=== PATIENT | female | born 2000 | race Caucasian/White ===

== ENCOUNTER 2023-12-15 13:17 | Emergency (ER) | payer SELFPAY ==
[2023-12-15 13:18] VITALS: BP 135/72
--- NOTE | 2023-12-15 13:36 | ED.GENMED ---
History of Present Illness
General
Chief Complaint: Musculo-Skeletal Complaint
Source: patient
Time Seen by Provider: 12/15/23 13:24
Travel History
Have you had any contact with someone who has COVID-19?: No
Do you have any symptoms of coronavirus? Fever > 100 degrees, chills, cough, shortness of breath, sore throat, loss of taste or smell, muscle aches, or headache?: No
History of Present Illness
History of Present Illness:
23-year-old female with past medical history of asthma presenting to the emergency ferment for evaluation of right foot pain located around the first MTP joint along the medial and plantar surface with inability to ambulate secondary to pain.
Patient states that when she has been ambulating she is standing on the lateral aspect of her foot. She denies any known injury or history of similar in the past. Patient does note that around a month ago she had 2 plantar warts on the foot that
she removed with [id number] medication without any complications. Denies any breaks in the skin, fevers or infectious symptoms.
Past History
Past History
ED Past Medical History: Asthma
ED Past Surgical History: None
Social History
Tobacco: Non-smoker
Alcohol: Occasional
Drug: None
Personal: Single
Living: with family
Employment: Employed
Review of Systems
Review of Systems
All Other Systems: ROS reviewed and negative except as documented in HPI and ROS
Phy Exam
Physical Exam
Physical Exam:
GENERAL: Alert , in no apparent distress
EYE: conjunctiva clear
Head: Normocephalic atraumatic
NECK: Supple,
ENT: mmm.
LUNGS: no acute respiratory distress
NEUROLOGICAL: Alert and oriented
SKIN: Warm and dry, skin intact.
MUSCULOSKELETAL: Right foot: Mild soft tissue swelling along the plantar and medial aspect at the first MTP. No significant erythema when compared to the left foot. No streaking. There is no tenderness on the rest of the foot when palpated.
Easily palpable pedal and tibial pulse. Cap refill less than 2 seconds and sensation is grossly intact to light touch.
PSYCH: Normal and appropriate interaction.
Scores
Heart Failure Risk
Heart Failure Risk Score: Not Applicable
Heart Score for Chest Pain Patients
STEMI patient?: Not applicable
Withdrawal Assessment of Alcohol
Withdrawal Assessment Completed?: Not applicable
Course
Orders/Labs/Results
Orders:
Orders
12/15/23 13:21
Foot, Right 3 View [CR Foot - Right Min 3 Views] Urgent
Comment:
Reason For Exam: pain
12/15/23 13:41
Crutches-Treatment ONCE
Vital Signs
Initial and Last Documented VS:
Initial Vital Signs
Temp Pulse Resp BP Pulse Ox
98.7 F 76 18 135/72 100
12/15/23 13:18 12/15/23 13:18 12/15/23 13:18 12/15/23 13:18 12/15/23 13:18
Last Documented Vital Signs
Temp Pulse Resp BP Pulse Ox
98.7 F 76 18 135/72 100
12/15/23 13:18 12/15/23 13:18 12/15/23 13:18 12/15/23 13:18 12/15/23 13:18
MDM/Problems Addressed
Differential Diagnosis Includes:
Gout, cellulitis, less concern for fracture given no reported trauma
MDM/Problems Addressed:
23-year-old female present emergency department for evaluation of atraumatic right foot pain x 2 days, has not attempted any medications for relief. Denies any fevers or infectious symptoms. Based off exam and location of symptoms I suspect gout
to be most likely. X-ray was ordered from triage and does not show any acute abnormalities. Will provide with crutches for support. Naproxen ordered for pain relief. Patient is otherwise stable for discharge home and outpatient management.
*Radiology
Radiology exam reviewed: preliminary read by ED provider (No acute fracture)
*Pulse Oximetry
Patient hypoxic: no
*Critical Care Note
Total Time (30-74mins, 75-104mins- exclusive of procedures): Not Applicable
ED Attending Note
-
Portions of this chart may have been created with voice recognition software.� Occasional wrong word or��sound alike� substitutions may have occurred due to the inherent limitations of voice recognition software.
Discharge Plan
Departure
Patient Disposition: Home (Routine Discharge)
Date of Disposition: 12/15/23
Time of Disposition: 13:36
Patient with high blood pressure during this ER visit?: No
Discharge Problem:
Pain of right great toe
Instructions: Gout (DC)
Prescriptions:
New
naproxen 500 mg tablet
500 mg PO BID 7 Days Qty: 14 0RF
Stand Alone Forms: Return to Work
Interventions
Interventions:
*Risk Screen - Suicide Last Done: 12/15/23 13:18
*General Assessment Last Done: 12/15/23 13:18
*Neglect/Abuse Screening Last Done: 12/15/23 13:18
ED- Fall Risk Assessment Last Done: 12/15/23 13:44
*ED COVID-19 Vaccine History Last Done: 12/15/23 13:18
*Nursing Disposition Last Done: 12/15/23 13:44
ED-Musculoskeletal Assessment Last Done: 12/15/23 13:44
Discharge Date and Time
Discharge Date/Time: 12/15/23 13:47
== END 2023-12-15 13:47 | disposition home or self-care (01) ==
LOC: EMR 13:17
PROVIDERS: EMERGENCY PHYSICIAN Emergency Medicine
DX: M79.674 Pain in right toe(s) (principal); M25.474 Effusion, right foot; R26.2 Difficulty in walking, not elsewhere classified; J45.909 Unspecified asthma, uncomplicated
CPT/HCPCS: 99283; 73630